=== PATIENT | female | born 2000 | race Two or more races ===

== ENCOUNTER 2025-06-17 23:06 | Emergency (ER) | payer BC, OTHER ==
[~2025-06-17] VITALS: Ht 165.1 cm; Wt 59.5 kg
[2025-06-17 23:59] VITALS: BP 132/112; PULSE 117; RESP 19; TEMP 98.4
--- NOTE | 2025-06-18 00:06 | ED.PDOC ---
History of Present Illness HPI Comments 24-year-old female presents with sister for chief complaint of nonradiating, LLQ abdominal pain, nausea, and vomiting. Patient reports ongoing symptoms following initial onset on 06/12/25. She has been unable to keep food or liquids down and has been unable to sleep for several days due to this. No relief or improvement of pain with [id number] ibuprofen medication use prior to ED arrival. She has similar symptoms whenever she has her menstrual period every month and was told previously she had an ovarian cyst when she had this pain before. She denies being currently. She denies having any pertinent medical, surgical, family, or social history. No recent prior ailments, sick contacts, travel, spoiled food consumption, or lifestyle/diet changes. Patient denies having any bloody or bilious vomitus, diarrhea, constipation, urinary problems, or further acute symptoms. Chief Complaint: Nausea/Vomiting Time Seen by MD: 23:50 Allergies: Coded Allergies: NO KNOWN ALLERGIES (Unverified , 06/17/25) Mode of Arrival: Ambulatory Past Medical History PAST MEDICAL HISTORY: Denies Surgical History: Denies all surgeries CINETECHNICIAN History: Ovarian Cysts Family History Family History: Reviewed,noncontributory to illness, No family hx of Cancer, No family hx of DM, No family hx of Heart mindi, No family hx of HTN, No family hx ofKidney mindi, No family hx of Liver mindi, No family hx of Lung mindi, No family hx of Stroke Social History Smoker: Non-Smoker Alcohol: Denies ETOH Use Drugs: Denies Drug Use Lives In: Home All Other Systems: Reviewed and Negative (Comprehensive review of systems are negative unless otherwise stated in HPI) Physical Exam General Appearance: Mild Distress, Normal HEENT: Normal ENT Inspection, Pharynx Normal, TMs Normal Neck: Full Range of Motion, Non-Tender, Normal, Normal Inspection Respiratory: Chest Non-Tender, Lungs Clear, No Accessory Muscle Use, No Respiratory Distress, Normal Breath Sounds Cardiovascular: No Edema, No JVD, No Murmur, No Gallop, Normal Peripheral Pulses, Regular Rate/Rhythm Breast Exam: Deferred Gastrointestinal: LLQ (Tenderness), No Organomegaly, No Pulsatile Mass, Normal Bowel Sounds, Soft, Tenderness (LLQ) Genitalia: Deferred Pelvic: Deferred Rectal: Deferred Extremities: No calf tenderness, Normal capillary refill, Normal inspection, Normal range of motion, Non-tender, No pedal edema Musculoskeletal : Apperance: Normal Neurologic: Alert, acquisitions analyst II-XII nml as Tested, No Motor Deficits, Normal Affect, Normal Mood, No Sensory Deficits Cerebellar Function: Normal Reflexes: Normal Skin: Dry, Normal Color, Warm Lymphatic: No Adenopathy Was a procedure done? Was a procedure done?: No Differential Dx Considerations may include: Gastritis, gastroenteritis, GERD, diverticulitis, ovarian cyst, ovarian torsion, PID, nephrolithiasis, pyelonephritis, cystitis, among others X-Ray, Labs, Meds, VS Vital Signs Date Time Temp Pulse Resp B/P (MAP) Pulse Ox O2 Delivery O2 Flow Rate FiO2 06/18/25 00:04 0 06/17/25 23:59 98.4 117 19 132/112 (119) 96 98.4 06/17/25 23:16 98.8 125 14 166/114 94 98.8 Lab Test 06/18/25 01:30 06/18/25 00:08 Range/Units Urine Color Light-orange Yellow Urine Clarity Turbid H Clear Urine pH 6.0 5.0-9.0 Urine Specific [place] 1.031 1.001-1.035 Urine Protein 2+ H Negative Urine Ketones 1+ H Negative Urine Blood 3+ H Negative /uL Urine Nitrite Negative Negative Urine Bilirubin 1+ H Negative Urine Urobilinogen 3 H Negative mg/dL Urine Leukocyte Esterase 3+ Negative /uL Urine RBC 288 0 - 4 /hpf Urine Microscopic WBC 162 H 0-5 /HPF Urine Squamous Epithelial Cells Few <5 /hpf Urine Bacteria None seen None Seen /hpf Urine Mucus Few None Seen Urine Glucose Normal Normal mg/dL Urine Test Negative Negative White Blood Count 17.0 H 4.4-10.8 10^3/uL Red Blood Count 5.28 H 4.0-5.20 10^6/uL Hemoglobin 17.2 H 12.2-16.2 g/dL Hematocrit 49.5 H 36.0-46.0 % Mean Corpuscular Volume 93.7 80.0-100.0 fL Mean Corpuscular Hemoglobin 32.5 H 28.0-32.0 pg Mean Corpuscular Hemoglobin Concent 34.7 32.0-36.0 g/dL Red Cell Distribution Width 14.0 11.8-14.3 % Platelet Count 627 H 140-450 10^3/uL Mean Platelet Volume 8.4 6.9-10.8 fL Neutrophils (%) (Auto) 59.6 37.0-80.0 % Lymphocytes (%) (Auto) 29.4 10.0-50.0 % Monocytes (%) (Auto) 10.0 0.0-12.0 % Eosinophils (%) (Auto) 0.3 0.0-7.0 % Basophils (%) (Auto) 0.7 0.0-2.0 % Neutrophils # (Auto) 10.1 H 1.6-8.6 10 ^3/uL Lymphocytes # (Auto) 5.0 0.4-5.4 10 ^3/uL Monocytes # (Auto) 1.7 H 0-1.3 10 ^3/uL Eosinophils # (Auto) 0 0-0.8 10 ^3/uL Basophils # (Auto) 0.1 0-0.2 10 ^3/uL Nucleated Red Blood Cells 0.1 % Sodium Level 132 L 136-145 mmol/L Potassium Level 3.0 L 3.5-5.1 mmol/L Chloride Level 86 L 98-107 mmol/L Carbon Dioxide Level 34 H 20-31 mmol/L Anion Gap 12 5-15 Blood Urea Nitrogen 21 9-23 mg/dL Creatinine 1.13 H 0.550-1.02 mg/dL Glomerular Filtration Rate Calc 69 >90 mL/min BUN/Creatinine Ratio 18.6 10.0-20.0 Serum Glucose 111 H 74-106 mg/dL Calcium Level 10.0 8.7-10.4 mg/dL Lipase 30 12-53 U/L Current Medications Medications (Trade) Dose Ordered Sig/Anushka Route Start Time Stop Time Status Last Admin Ondansetron HCl (Zofran) 4 mg ONCE ONCE IV 06/18/25 00:30 06/18/25 00:31 DC 06/18/25 00:33 Sodium Chloride 1,000 ml @ 1,000 mls/hr Q1H ONCE IV 06/18/25 00:30 06/18/25 01:29 DC 06/18/25 00:34 X-Ray, Labs, Meds, VS Comment Patient presents with left lower quadrant abdominal pain associated with nausea, vomiting, p.o. intolerance for the past few days. Symptoms consistent with her typical symptoms every month during her menstrual cycle. Lab work (CBC, BMP) to evaluate for evidence of severe anemia, electrolyte abnormality including hypokalemia, hyperkalemia, hypernatremia, hyponatremia, hyperglycemia, hypoglycemia, etc. Urinalysis to evaluate for hematuria or infection Pelvic ultrasound to evaluate for torsion, cyst, ectopic, etc. IV fluids IV Zofran Re-evaluate Social determinant surveillance affecting care: Social determinants of health that will affect the patient's care: Poor health literacy (additional time provided an explanation) Poor access to outpatient care/followup (provided outpatient resources) Time of 1ST Reevaluation: 00:30 Reevaluation 1ST: Unchanged Patient Education/Counseling: Diagnosis, Treatment Family Education/Counseling: Diagnosis, Treatment SEPSIS Sepsis Screen Date sepsis recognized/suspect: Jun 17, 2025 Time Sepsis recognized/suspect: 2318 Recent Procedure: No On Antibiotic Therapy: No Respiratory Rate >20: No Heart Rate >90: Yes Temp<36 C (96.8 F) or >38.3 C: No SBP <90 or MAP <65 mmHG: No New Acute Mental Status Change: No Is the patient on CPAP, BIPAP,: No Physician Orders Pelvic (06/18/25 00:02) Transvaginal Us Non Ob (06/18/25 00:42) Vital Signs Date Time Temp Pulse Resp B/P (MAP) Pulse Ox O2 Delivery O2 Flow Rate FiO2 06/18/25 00:04 0 06/17/25 23:59 98.4 117 19 132/112 (119) 96 98.4 06/17/25 23:16 98.8 125 14 166/114 94 98.8 Laboratory Tests Test 06/18/25 00:08 White Blood Count 17.0 10^3/uL (4.4-10.8) H Medications Medications Dose Ordered Sig/Anushka Route Start Time Stop Time Status Last Admin Dose Admin Ondansetron HCl 4 mg ONCE ONCE IV 06/18/25 00:30 12 00:31 DC 06/18/25 00:33 Sodium Chloride 1,000 ml @ 1,000 mls/hr Q1H ONCE IV 06/18/25 00:30 06/18/25 01:29 DC 06/18/25 00:34 Departure 1 Departure Time of Disposition: 05:01 (On reassessment, patient's symptoms improved. Repeat abdominal exam soft, nontender, nondistended. Patient tolerating p.o.. Labs and imaging unremarkable. No ovarian cyst or concern for torsion. Will discharge with p.o. Zofran. Given strict return precautions and PMD follow-up.) Impression: Primary Impression: Acute left lower quadrant pain Additional Impression: Acute nausea with nonbilious vomiting Disposition: HOME / SELF CARE / HOMELESS Condition: Stable e-Prescriptions Ondansetron Odt 4MG Tab (ZOFRAN PO) 4 Mg Tb 4 MG PO TIDPRN PRN for 5 Days, #15 TAB ODT TAB-DISSOLVE IN MOUTH, THEN SWALLOW Prov: JOCELIN STOKES MD 06/18/25 Discharged With: Self Critical Care Note Critical Care Time?: No Stability Stability form required: No Heart Score Heart Score: Heart Score Response (Comments) Value History N/A 0 EKG N/A 0 Age N/A 0 Risk Factors N/A 0 Troponin N/A 0 Total 0 I personally scribed for JOCELIN STOKES MD ([email or web address]) on 06/18/25 at 00:06. Electronically submitted by Kenyon Cook ([email or web address]). JOCELIN STOKES MD Jun 18, 2025 00:06
[2025-06-18] MEDS ORDERED: ONDANSETRON ODT 4 MG TAB PO ONE (00:15)
[2025-06-18 00:18] LABS: Nucleated Red Blood Cells % 0.1 %
[2025-06-18 00:20] LABS: Hematocrit 49.5 % (36.0-46.0); Hemoglobin 17.2 g/dL (12.2-16.2); Mean Corpuscular Hemoglobin 32.5 pg (28.0-32.0); Mean Corpuscular Volume 93.7 fL (80.0-100.0)
[2025-06-18 00:27] LABS: Anion Gap 12 (5-15)
[2025-06-18 00:28] LABS: Calcium 10.0 mg/dL (8.7-10.4)
[2025-06-18 00:30] LABS: Carbon Dioxide 34 mmol/L (20-31); Chloride 86 mmol/L (98-107); Potassium 3.0 mmol/L (3.5-5.1); Sodium 132 mmol/L (136-145)
[2025-06-18 00:33] LABS: BUN/Creatinine Ratio 18.6 (10.0-20.0); Blood Urea Nitrogen 21 mg/dL (9-23); Glucose 111 mg/dL (74-106); Lipase 30 U/L (12-53)
[2025-06-18] MEDS: ONDANSETRON HCL 4 MG/2 ML VIAL IV ONE (00:33)
[2025-06-18] MEDS: SODIUM CHLORIDE 0.9% 1,000 ML IV ONE (00:34)
--- NOTE | 2025-06-18 01:31 | DVH ---
Procedure: US PELVIC 06/18/2025 12:33 AM Indication: pelvic pain Comparison: None Technique: Real-time grayscale and color images were obtained with transabdominal and transvaginal transducers. FINDINGS: UTERUS: Anteverted, measuring 7.1 x 3.1 x 3.6 cm in length. Homogeneous myometrium without a discrete lesion. ENDOMETRIAL STRIPE: 3 mm in thickness. Homogenous echotexture. No fluid in the endometrial canal. RIGHT OVARY: 2.7 x 1.9 x 2.20 cm in length. 5.7 mL in volume. Preserved vascular flow. No suspicious lesions identified. LEFT OVARY: 2.8 x 1.6 x 2.6 cm in length. 6.2 mL in volume. Preserved vascular flow. No suspicious lesions identified. CUL-DE-SAC: No significant fluid noted. OTHER: None. IMPRESSION: 1. No acute sonographic abnormality.
[2025-06-18 02:25] LABS: Urine Protein, UAD 2+ (Negative)
[2025-06-18 02:50] VITALS: O2SAT 98
[2025-06-18] MEDS ORDERED: ZOFR4T PO (05:02)
== END 2025-06-18 03:10 | disposition home or self-care (01) ==
LOC: ER 23:06
DX: R10.32 Left lower quadrant pain (principal); R11.2 Nausea with vomiting, unspecified
CPT/HCPCS: 36415; 76830; 76856; 80048; 81001; 81025; 83690; 85025; 96361; 96374; 99285; J2405; J7030